=== PATIENT | female | born 1970 | race African-American/Black ===

== ENCOUNTER 2019-09-07 08:03 | Emergency (ER) | payer BC, SELFPAY ==
[2019-09-07 09:20] LABS: Absolute Lymphocytes (CBC) 1.4 K/uL (0.7-4.9); Hematocrit 29.5 % (36.0-45.0); Lymphocytes % 21.3 % (15.3-44.8); MPV 9.1 fL (7.6-11.3); RBC Red Blood Cell Count 3.92 M/uL (3.86-4.86)
[2019-09-07 09:35] LABS: Albumin 3.4 g/dL (3.4-5.0); Bilirubin Direct 0.1 mg/dL (0-0.2); Bilirubin Total 0.4 mg/dL (0.2-1.0); Potassium 3.9 mmol/L (3.5-5.1); Protein, Total 7.3 g/dL (6.4-8.2)
[2019-09-07 10:09] LABS: Blood Morphology Comment NOTED (NOT SEEN); Urine White Blood Cell Casts OK
[2019-09-07 10:10] LABS: Anisocytosis 2+; Platelet Estimate ADEQ
--- NOTE | 2019-09-07 10:26 | RAD REPORT ---
EXAM DESCRIPTION: CTAbdomen Pelvis W Contrast - 09/07/2019 9:52 am CLINICAL HISTORY: Abdominal pain. ABD PAIN COMPARISON: No comparisons TECHNIQUE: Biphasic CT imaging of the abdomen and pelvis was performed with 100 ml non-ionic IV cont rast. All CT scans are performed using dose optimization technique as appropriate and may include automated exposure control or mA/KV adjustment according to patient size. FINDINGS: The lung bases are clear. The liver, spleen, pancreas, adrenal glands and kidneys are within normal limits. 2 cm left renal cys t. No bowel obstruction, free air, free fluid or abscess. Moderate colonic stool. The appendix is normal . No evidence of significant lymphadenopathy. Mild lumbosacral degenerative changes. IUD appears inferiorly positioned in the lower uterine segment /cervix. IMPRESSION: No acute intra-abdominal or pelvic finding. Abnormally low positioned IUD.
--- NOTE | 2019-09-07 10:44 | RAD REPORT ---
EXAM DESCRIPTION: US - Abdomen Exam Limited - 09/07/2019 8:54 am CLINICAL HISTORY: Abdominal pain. COMPARISON: None. FINDINGS: The gallbladder wall is not thickened. A gallstone is not seen. The biliary tree is normal caliber. IMPRESSION: Unremarkable gallbladder ultrasound.
--- NOTE | 2019-09-07 11:40 | ER ---
Nurse's Notes [facility] Name: Stacie Frausto Age: 48 yrs Sex: Female : 1970 Arrival Date: 09/07/2019 Time: 08:05 Bed 16 Private MD: Diagnosis: Epigastric pain;Abdominal and pelvic pain Presentation: 09/07 08:17 Presenting complaint: Epigastric pain that radiates to back x 2 months. Pain is worse hb in mornings. Recently hospitalized with anemia and gastric ulcer, started on Pepcid. Transition of care: patient was not received from another setting of care. Onset of symptoms was June 2019. Risk Assessment: Do you want to hurt yourself or someone else? Patient reports no desire to harm self or others. Initial Sepsis Screen: Does the patient meet any 2 criteria? No. Patient's initial sepsis screen is negative. Does the patient have a suspected source of infection? No. Patient's initial sepsis screen is negative. Care prior to arrival: Medication(s) given: Motrin, at 0300 today. 08:17 Method Of Arrival: Ambulatory hb 08:17 Acuity: LUIS 3 hb Triage Assessment: 08:25 General: Appears in no apparent distress. Behavior is calm, cooperative. Pain: Pain hb currently is 8 out of 10 on a pain scale. EENT: No signs and/or symptoms were reported regarding the EENT system. Neuro: Level of Consciousness is awake, alert, obeys commands, Oriented to person, place, time, situation. Cardiovascular: Capillary refill < 3 seconds Patient's skin is warm and dry. Respiratory: Airway is patent Respiratory effort is even, unlabored, Respiratory pattern is regular, symmetrical, Breath sounds are clear bilaterally. GI: Abdomen is non-distended, Bowel sounds present X 4 quads. Abd is soft and non tender X 4 quads. : No signs and/or symptoms were reported regarding the genitourinary system. Derm: Skin is intact, is healthy with good turgor. Musculoskeletal: No signs and/or symptoms reported regarding the musculoskeletal system. 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 - Social history:: Smoking status: Patient/guardian denies using tobacco. - Ebola Screening: : No symptoms or risks identified at this time. Screenin:26 Abuse screen: Denies threats or abuse. Denies injuries from another. Nutritional hb screening: No deficits noted. Tuberculosis screening: No symptoms or risk factors identified. Fall Risk None identified. Assessment: 08:26 General: see triage assessment. hb 08:37 Reassessment: Pt to US. hb 09:00 Reassessment: Patient appears in no apparent distress at this time. Patient and/or hb family updated on plan of care and expected duration. Pain level reassessed. Patient is alert, oriented x 3, equal unlabored respirations, skin warm/dry/pink. 10:00 Reassessment: Patient appears in no apparent distress at this time. Patient and/or hb family updated on plan of care and expected duration. Pain level reassessed. Patient is alert, oriented x 3, equal unlabored respirations, skin warm/dry/pink. 10:49 Reassessment: Patient appears in no apparent distress at this time. No changes from aj1 previously documented assessment. Patient and/or family updated on plan of care and expected duration. Pain level reassessed. Patient is alert, oriented x 3, equal unlabored respirations, skin warm/dry/pink. 11:45 Reassessment: Patient appears in no apparent distress at this time. No changes from aj1 previously documented assessment. Patient and/or family updated on plan of care and expected duration. Pain level reassessed. Patient is alert, oriented x 3, equal unlabored respirations, skin warm/dry/pink. 12:39 Reassessment: Patient appears in no apparent distress at this time. No changes from aj1 previously documented assessment. Patient and/or family updated on plan of care and expected duration. Pain level reassessed. Patient is alert, oriented x 3, equal unlabored respirations, skin warm/dry/pink. Vital Signs: 08:23 BP 120 / 78; Pulse 62; Resp 16; Temp 98.5; Pulse Ox 100% ; Weight 90.72 kg; Height 5 hb ft. 10 in. (177.80 cm); Pain 8/10; 09:30 BP 122 / 76; Pulse 66; Resp 16; Pulse Ox 100% on R/A; hb 10:49 BP 122 / 89; Pulse 63; Resp 18; Pulse Ox 98% on R/A; aj1 08:23 Body Mass Index 28.70 (90.72 kg, 177.80 cm) hb ED Course: 08:05 Patient arrived in ED. as 08:10 Josep Kline MD is Attending Physician. kdr 08:12 Yovana Vila, RN is Primary Nurse. hb 08:22 Triage completed. hb 08:23 Arm band placed on. hb 08:26 Patient has correct armband on for positive identification. Bed in low position. Call hb light in reach. Side rails up X 1. 08:56 US Abdomen Limited In Process Unspecified. EDMS 09:04 Inserted saline lock: 22 gauge in right antecubital area, using aseptic technique. hb Blood collected. 09:05 CT Abd/Pelvis - IV Contrast Only In Process Unspecified. EDMS 09:06 Basic Metabolic Panel Sent. hb 09:06 CBC with Diff Sent. hb 09:06 Creatinine for Radiology Sent. hb 09:06 Hepatic Function Sent. hb 09:06 Lipase Sent. hb 10:47 Report received from JOSEPH Yen. aj1 12:38 No provider procedures requiring assistance completed. IV discontinued, intact, aj1 bleeding controlled, No redness/swelling at site. Pressure dressing applied. Administered Medications: 12:37 Drug: ProTONIX 40 mg Route: PO; aj1 12:37 Follow up: Response: No adverse reaction aj1 Outcome: 11:40 Discharge ordered by . kdr 12:39 Discharged to home ambulatory. aj1 12:39 Condition: good 12:39 Discharge instructions given to patient, Instructed on discharge instructions, follow up and referral plans. medication usage, Demonstrated understanding of instructions, follow-up care, medications, Prescriptions given X 3. 12:40 Patient left the ED. aj1 Signatures: Dispatcher [employer] EDMS Sultana Mccall RN RN aj1 Josep Kline MD MD kdr Jerica Cancino as Yovana Vila, RN RN hb
--- NOTE | 2019-09-07 11:40 | EDPHYS ---
Physician Documentation [facility] Name: Stacie Frausto Age: 48 yrs Sex: Female : 1970 Arrival Date: 09/07/2019 Time: 08:05 Bed 16 Private MD: ED Physician Josep Kline HPI: 09/07 10:48 This 48 yrs old Black Female presents to ER via Ambulatory with complaints of kdr Epigastric Pain, Back Pain. 10:48 The patient presents with abdominal pain in the epigastric area. Onset: The kdr symptoms/episode began/occurred gradually, 3 month(s) ago. The symptoms radiate to right back. Associated signs and symptoms: Pertinent positives: nausea, Pertinent negatives: blood in stools, chest pain, constipation, diarrhea, dysuria, fever, headache, hematuria, palpitations, shortness of breath, vomiting, vomiting blood. The symptoms are described as achy, crampy, intermittent, vague, waxing/waning. Modifying factors: The symptoms are alleviated by nothing, Warm water. the symptoms are aggravated by food. Severity of pain: At its worst the pain was mild moderate just prior to arrival, in the emergency department the pain has resolved. The patient has experienced similar episodes in the past, several times. The patient has been recently seen by a physician: The patient was recently admitted and had extensive w/u at another facility in the last few weeks. This included CT abdomen, Upper GI (Ulcers). She was discharged on Pepcid but has continued to have the same discomfort which is ot changing but persists. 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 - Social history:: Smoking status: Patient/guardian denies using tobacco. - Ebola Screening: : No symptoms or risks identified at this time. ROS: 10:48 Constitutional: Negative for fever, chills, and weight loss, Eyes: Negative for injury, kdr pain, redness, and discharge, ENT: Negative for injury, pain, and discharge, Neck: Negative for injury, pain, and swelling, Cardiovascular: Negative for chest pain, palpitations, and edema, Respiratory: Negative for shortness of breath, cough, wheezing, and pleuritic chest pain, Back: Negative for injury and pain, : Negative for injury, bleeding, discharge, and swelling, MS/Extremity: Negative for injury and deformity, Skin: Negative for injury, rash, and discoloration, Neuro: Negative for headache, weakness, numbness, tingling, and seizure activity. Psych: Negative for depression, anxiety, suicide ideation, homicidal ideation, and hallucinations, Allergy/Immunology: Negative for hives, rash, and allergies, Endocrine: Negative for neck swelling, polydipsia, polyuria, polyphagia, and marked weight changes, Hematologic/Lymphatic: Negative for swollen nodes, abnormal bleeding, and unusual bruising. 10:48 Abdomen/GI: Positive for abdominal pain, nausea, of the epigastric area, Pain radiates to left scapula. Exam: 10:48 Constitutional: This is a well developed, well nourished patient who is awake, alert, kdr and in no acute distress. Head/Face: Normocephalic, atraumatic. Eyes: Pupils equal round and reactive to light, extra-ocular motions intact. Lids and lashes normal. Conjunctiva and sclera are non-icteric and not injected. Cornea within normal limits. Periorbital areas with no swelling, redness, or edema. Neck: Trachea midline, no thyromegaly or masses palpated, and no cervical lymphadenopathy. Supple, full range of motion without nuchal rigidity, or vertebral point tenderness. No Meningismus. Chest/axilla: Normal chest wall appearance and motion. Nontender with no deformity. No lesions are appreciated. Cardiovascular: Regular rate and rhythm with a normal S1 and S2. No gallops, murmurs, or rubs. Normal PMI, no JVD. No pulse deficits. Respiratory: Lungs have equal breath sounds bilaterally, clear to auscultation and percussion. No rales, rhonchi or wheezes noted. No increased work of breathing, no retractions or nasal flaring. Back: No spinal tenderness. No costovertebral tenderness. Full range of motion. Skin: Warm, dry with normal turgor. Normal color with no rashes, no lesions, and no evidence of cellulitis. MS/ Extremity: Pulses equal, no cyanosis. Neurovascular intact. Full, normal range of motion. Neuro: Awake and alert, GCS 15, oriented to person, place, time, and situation. Cranial nerves II-XII grossly intact. Motor strength 5/5 in all extremities. Sensory grossly intact. Cerebellar exam normal. Normal gait. Psych: Awake, alert, with orientation to person, place and time. Behavior, mood, and affect are within normal limits. 10:48 Abdomen/GI: Inspection: abdomen appears normal, Bowel sounds: active, Palpation: soft, Very minimal epigastric tenderness. Vital Signs: 08:23 BP 120 / 78; Pulse 62; Resp 16; Temp 98.5; Pulse Ox 100% ; Weight 90.72 kg; Height 5 hb ft. 10 in. (177.80 cm); Pain 8/10; 09:30 BP 122 / 76; Pulse 66; Resp 16; Pulse Ox 100% on R/A; hb 10:49 BP 122 / 89; Pulse 63; Resp 18; Pulse Ox 98% on R/A; aj1 08:23 Body Mass Index 28.70 (90.72 kg, 177.80 cm) hb MDM: 10:48 Data reviewed: vital signs, nurses notes, lab test result(s), radiologic studies. kdr Counseling: I had a detailed discussion with the patient and/or guardian regarding: the historical points, exam findings, and any diagnostic results supporting the discharge/admit diagnosis, lab results, radiology results, the need for outpatient follow up. 11:40 Patient medically screened. kdr 09/07 08:30 Order name: Basic Metabolic Panel; Complete Time: 10:00 kdr 09/07 08:30 Order name: CBC with Diff; Complete Time: 10:32 kdr 09/07 08:30 Order name: Creatinine for Radiology; Complete Time: 10:00 kdr 09/07 08:30 Order name: Hepatic Function; Complete Time: 10:00 kdr 09/07 08:30 Order name: Lipase; Complete Time: 10:00 kdr 09/07 09:31 Order name: CBC Smear Scan; Complete Time: 10:32 EDMS 09/07 08:30 Order name: IV Saline Lock; Complete Time: 09:06 kdr 09/07 08:30 Order name: Labs collected and sent; Complete Time: 09:06 kdr 09/07 08:30 Order name: US Abdomen Limited; Complete Time: 11:10 kdr 09/07 08:30 Order name: CT Abd/Pelvis - IV Contrast Only; Complete Time: 10:32 kdr Administered Medications: 12:37 Drug: ProTONIX 40 mg Route: PO; aj1 12:37 Follow up: Response: No adverse reaction aj1 Disposition: 09/07/19 11:40 Discharged to Home. Impression: Epigastric pain, Abdominal and pelvic pain. - Condition is Stable. - Discharge Instructions: Abdominal Pain, Adult, [id number]. - Prescriptions for Bentyl 20 mg Oral Tablet - take 1 tablet by ORAL route every 6 hours As needed; 20 tablet. Protonix 40 mg Oral Tablet - take 1 tablet by ORAL route once daily; 30 tablet. Tramadol 50 mg Oral Tablet - take 1 tablet by ORAL route every 8 hours as needed; 12 tablet. - Work release form, Medication Reconciliation Form, Thank You Letter, Prescription Opioid Use form. - Follow up: Private Physician; When: 2 - 3 days; Reason: If symptoms return, Further diagnostic work-up, Recheck today's complaints, Continuance of care, Re-evaluation by your physician. - Problem is an ongoing problem. - Symptoms have improved. Signatures: Dispatcher [employer] EDMD Sultana Mccall RN RN aj1 Josep Kline MD MD [facility] Yovana Vila RN RN Corrections: (The following items were deleted from the chart) 12:40 11:40 09/07/2019 11:40 Discharged to Home. Impression: Epigastric pain; Abdominal and aj1 pelvic pain. Condition is Stable. Forms are Medication Reconciliation Form, Thank You Letter, Antibiotic Education, Prescription Opioid Use. Follow up: Private Physician; When: 2 - 3 days; Reason: If symptoms return, Further diagnostic work-up, Recheck today's complaints, Continuance of care, Re-evaluation by your physician. Problem is an ongoing problem. Symptoms have improved. kdr
[2019-09-07] MEDS ORDERED: PANTOPRAZOLE 40MG TABLET PO ONE (12:25)
[2019-09-07 13:00] VITALS: TEMP 98.5
[2019-09-07 13:04] VITALS: BP 122/89; O2SAT 98
== END 2019-09-07 12:40 | disposition home or self-care (01) ==
LOC: ER 08:03
DX: R10.2 Pelvic and perineal pain (principal); I10 Essential (primary) hypertension; D64.9 Anemia, unspecified
CPT/HCPCS: 85025; 80048; 36415; 80076; 83690; 74177; 76705; Q9967; 99284